=== PATIENT | female | born 2000 | race Two or more races ===

== ENCOUNTER 2021-09-29 03:04 | Outpatient (CLI) | payer OTHER ==
[~2021-09-29] VITALS: Ht 165.1 cm; Wt 72.6 kg
[2021-09-29] MEDS ORDERED: PRENATAL TABLE1 EAC1 PO (03:59)
== END 2021-09-29 12:26 | disposition home or self-care (01) ==
LOC: OBS/DEL 03:04
PROVIDERS: ATTEND Student in an Organized Health Care Education/Training Program
DX: O26.893 Other specified pregnancy related conditions, third trimester (principal); Z3A.31 31 weeks gestation of pregnancy; R07.81 Pleurodynia; M25.512 Pain in left shoulder; M25.511 Pain in right shoulder; M54.50 Low back pain, unspecified